=== PATIENT | female | born 1990 | race Caucasian/White ===

== ENCOUNTER 2018-02-05 18:28 | Emergency (ER) | payer MEDICAID ==
[~2018-02-05] VITALS: Ht 157.5 cm; Wt 63.5 kg
--- NOTE | 2018-02-05 19:01 | NUR ---
DR EVANGELISTA AT THE BEDSIDE FOR MSE.
[2018-02-05] MEDS ORDERED: IBUPROFEN 600 MG TABLET ONE (19:05)
[2018-02-05] MEDS ORDERED: IBUPROFEN 600 MG TABLET PO ONE (19:15)
--- NOTE | 2018-02-05 19:21 | NUR ---
XRAY AT BEDSIDE.
--- NOTE | 2018-02-05 20:03 | NUR ---
Patient discharged to home in stable conditon. Written and verbal after care instructions given. Patient verbalizes understanding of instructions.
[2018-02-05 20:04] VITALS: BP 128/84
== END 2018-02-05 20:05 | disposition home or self-care (01) ==
LOC: ER 18:30
DX: M94.0 Chondrocostal junction syndrome [Tietze] (principal)
CPT/HCPCS: 71101; 99284; A4663